=== PATIENT | female | born 1995 | race Caucasian/White ===

== ENCOUNTER 2017-04-01 14:42 | Outpatient (CLI) | payer BC ==
--- NOTE | 2017-04-08 10:40 | PFT ---
PATIENT HISTORY: HEIGHT: 65 IN WEIGHT:123 SMOKER: NO HOW LONG: PACKS PER DAY PRODUCTIVE COUGH: NO LUNG DISEASE: PHYSICIAN INTERPRETATION FINAL REPORT: FVC 3.22 (80%), FEV1 2.49 (76%), FEV1/FVC 0.77. TLC 4.11 (75%), FRC, 2.20 (79%), RV 1.07 (72%). Diffusion 30.10 (128%) IMPRESSION: There is a mild reduction both the FEV 1 and the FVC. The ratio is suggestive of a restrictive profile. There is mild flattening to the inspiratory curve of the flow volume loop, though it is not so severe that it should create significant limitations in breathing. Interestingly, after bronchodilator, the patient adopts more of an obstructive profile and has a significant drop in the FEV1. The total lung capacity and residual volume are mildly reduced confirming volume restriction. Diffusion capacity falls well within the normal limits and is actually slightly elevated. Overall, these pulmonary function studies are a little confusing. They are most suggestive of a mild restrictive process with elevated diffusion capacity. Cautious interpretation of these studies is suggested as I am not clear about the patient's effort, understanding, and coordination during these tests which could provide us with bad data. Clinical and radiographic correlation should be considered. No priors are available for comparison. Day Care Aide: BAM Email Marketing Specialist: BAM SWEET
== END 2017-04-01 14:43 | disposition home or self-care (01) ==
LOC: CP 14:42
PROVIDERS: ATTEND Family Medicine
DX: R07.9 Chest pain, unspecified (principal)
CPT/HCPCS: 94060; 94727; 94729